=== PATIENT | male | born 1970 | race Two or more races ===

== ENCOUNTER 2024-09-15 09:58 | Inpatient (IN) | payer OTHER ==
[~2024-09-15] VITALS: Ht 175.3 cm; Wt 68.0 kg
[2024-09-15] MEDS ORDERED: 0.9 % SODIUM CHLORIDE 1,000 ML IV STA (11:33)
[2024-09-15] MEDS ORDERED: KETOROLAC TROMETHAMINE 30 MG VIAL IV STA (11:33)
[2024-09-15] MEDS ORDERED: MORPHINE SULFATE 4 MG/ML VIAL IV STA (11:34)
[2024-09-15] MEDS ORDERED: PIPERACILLIN/TAZOBACTAM SODIUM 3.375 GM VIAL IV STA (12:17)
[2024-09-15 12:57] LABS: URINE APPEARANCE Clear; URINE BILIRRUBIN Negative (NEGATIVE); URINE BLOOD Negative; URINE COLOR Yellow; URINE GLUCOSE Negative (NEGATIVE); URINE KETONE Negative (NEGATIVE); URINE LEUKOCYTE Negative; URINE NITRATE Negative; URINE PROTEIN Negative (NEGATIVE); URINE UROBILINOGEN 0.2 E.U./dl
[2024-09-15 13:01] LABS: URINE BACTERIA 8.3 uL (0.0-1933); URINE RBC 4.5 uL (0.0-20.8)
[2024-09-15 13:03] LABS: BASO % 0.5 % (0.1-1.2); EOS # 0.05 (0.04-0.54); EOS % 0.4 % (0.7-7.0); LYMPH # 2.77 (1.18-3.74); LYMPH % 21.2 % (19.3-53.1); MEAN PLATELET VOLUME 8.00 fl (9.4-12.4); MONO # 1.15 (0.24-0.82); MONO % 8.8 % (4.7-12.5); NEUT # 9.02 (1.56-6.13); NEUT % 68.9 % (34.0-71.1); RED CELL DISTRIBUTION WIDTH 13.0 % (11.6-14.4)
[2024-09-15 13:13] LABS: URINE CAST 0.00 uL (0.0-1.40); URINE EPITHELIAL CELLS 0.6 uL (0.0-38.8); URINE WBC 0.1 uL (0.0-23.2)
[2024-09-15 13:21] LABS: INR 1.0
[2024-09-15 13:28] LABS: ALT/SGPT 46.0 U/L (12-78); AST/SGOT 16.0 U/L (15-37); BILIRUBIN TOTAL 1.01 mg/dL (0.3-1.2); BUN CREA RATIO 15.0 (7.0-25.0); CREATININE SERUM 0.81 mg/dL (0.70-1.30); GFR 100.07; GLOBULINA 3.7 G/DL (2.4-3.5); GLUCOSE FASTING 96.0 mg/dL (65-100); OSMOLALITY SERUM 279.0 MOSM/KG (275-295)
[2024-09-15] MEDS ORDERED: 0.9 % SODIUM CHLORIDE 1,000 ML IV SCH (16:45)
[2024-09-15] MEDS ORDERED: ONDANSETRON HCL 4 MG in 0.9 % SODIUM CHLORIDE 50 ML IV PRN (16:45)
[2024-09-15] MEDS ORDERED: ACETAMINOPHEN 500 MG GEL..CAP PO PRN (16:45)
[2024-09-15] MEDS ORDERED: MORPHINE SULFATE 4 MG/ML CARTRIDGE IV PRN (16:45)
[2024-09-15 17:51] LABS: COVID-19 AG NEGATIVE (NEGATIVE)
[2024-09-15] MEDS ORDERED: PIPERACILLIN/TAZOBACTAM SODIUM 3.375 GM in DEXTROSE 5 % IN WATER 100 ML IV SCH (18:00)
[2024-09-16 00:40] VITALS: BP 130/73; O2SAT 98
[2024-09-16 08:00] VITALS: BP 107/67; O2SAT 96
[2024-09-16] MEDS ORDERED: FAMOTIDINE/PF 20 MG in 0.9 % SODIUM CHLORIDE 8 ML IV PUSH SCH (09:00)
[2024-09-16 16:00] VITALS: BP 123/79; O2SAT 97
== END 2024-09-16 17:45 | disposition home or self-care (01) | DRG 399 ==
LOC: ER 10:16 → SURH 16:49 → SEC-K 16:49 → SURH 20:35
PROVIDERS: General Practice; Specialist; ADMIT Internal Medicine; ATTEND Internal Medicine
PROC: BW21ZZZ Computerized Tomography (CT Scan) of Abdomen and Pelvis (ICD-10-PCS; 2024-09-15)
PROC: 0DTJ4ZZ Resection of Appendix, Percutaneous Endoscopic Approach (ICD-10-PCS; principal; 2024-09-15 20:00)
DX: K35.80 Unspecified acute appendicitis (principal); R10.31 Right lower quadrant pain